=== PATIENT | female | born 1955 | race Caucasian/White ===

== ENCOUNTER 2018-06-13 20:25 | Emergency (ER) | payer OTHER ==
[2018-06-13 20:47] LABS: Absolute Monocytes 0.6 K/uL (0.1-1.3); Absolute Neutrophil 4.9 K/uL (1.8-8.0); Basophils % 1.3 % (0-1.3); Eosinophils % 7.4 % (0-4.4); Hematocrit 43.3 % (36.0-45.0); Lymphocytes % 24.3 % (15.3-44.8); MCV 94.8 fL (80-100); MPV 7.9 fL (7.6-11.3); Monocytes % 7.3 % (3.3-12.3); RBC Red Blood Cell Count 4.57 M/uL (3.86-4.86)
[2018-06-13 20:57] LABS: Potassium 4.2 mmol/L (3.5-5.1)
[2018-06-13 21:08] LABS: Protime INR 0.96
--- NOTE | 2018-06-13 21:15 | RAD REPORT ---
EXAM DESCRIPTION: CT - Ct Stroke Brain Wo Cont - 06/13/2018 8:45 pm CLINICAL HISTORY: Acute stroke symptoms CLINICAL HISTORY: None. TECHNIQUE: Axial 5 millimeter thick images of the head were obtained without IV contrast. All CT scans are performed using dose optimization technique as appropriate and may include automated exposure control or mA/KV adjustment according to patient size. FINDINGS: No intracranial hemorrhage, mass, or cerebral edema. No acute cortical based infarction. N o cortical edema or sulcal effacement. Mild atrophy and mild to moderate chronic ischemic changes are present. Ventricular size is in proportion to volume loss. No extra-axial fluid collections. Morgan m atter-white matter differentiation is preserved. No globe or orbital content abnormality. Visualized portions of the mastoid air cells, paranasal sinuses, and orbits are unremarkable. Technical difficulties precluded immediate written report. Findings telephoned to Dr. Kruse at 2044 h ours. IMPRESSION: No hemorrhage and no acute cortical based infarction. Atrophy and chronic ischemic changes are present. Chronic ischemic changes can mask nonhemorrhagic acute infarction. MR brain followup can be obtained if there is ongoing concern for acute ischemia.
[2018-06-13 21:23] LABS: Urine Blood NEGATIVE (NEG); Urine Glucose NEGATIVE (NEG); Urine Protein NEGATIVE (NEG); Urine Specific Gravity <1.005 (1.005-1.030); Urine pH 5.5 (5.0-7.0)
[2018-06-13 21:29] LABS: Urine Bacteria <20 /HPF (<20); Urine Culture Reflex Order REFLEXED; Urine RBC <5 /HPF (NONE SEEN); Urine Yeast MANY (NONE SEEN)
--- NOTE | 2018-06-13 23:41 | RAD REPORT ---
EXAM DESCRIPTION: RAD - Chest Single View - 06/13/2018 9:40 pm CLINICAL HISTORY: Stroke protocol chest film COMPARISON: September 2017 TECHNIQUE: AP portable chest image was obtained 2128 hours . FINDINGS: Lungs are clear. Heart and vasculature are normal. No measurable pleural effusion and no p neumothorax. No acute bone finding. Left shoulder prosthesis in place, new from the prior study. Trac hea is midline. No acute aortic findings suspected. IMPRESSION: No acute cardiopulmonary process. No suspicious change from comparison.
--- NOTE | 2018-06-14 00:36 | EDPHYS ---
Physician Documentation [facility] Name: Patria Mendoza Age: 63 yrs Sex: Female : 1955 Arrival Date: 06/13/2018 Time: 20:27 Bed 4 Private MD: Ulisses Rodriguez V ED Physician Haider Kruse HPI: 06/13 20:25 This 63 yrs old Female presents to ER via Unassigned with complaints of gs numbness. 06/14 00:27 The patient's problem is reported as paresthesias, in left upper extremity, in left gs side of face, weakness, in the left upper extremity. Onset: The symptoms/episode began/occurred yesterday, at 19:50. 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 Context: occurred at home, occurred while the patient was eating. The symptoms are alleviated by nothing. The symptoms are aggravated by nothing. Associated signs and symptoms: Pertinent negatives: chest pain, combativeness, confusion. Severity of symptoms: At their worst the symptoms were severe in the emergency department the symptoms have resolved and did so just prior to arrival. The patient has not experienced similar symptoms in the past. Historical: - Allergies: 06/13 20:47 Codeine; bb 20:47 Iodinated Contrast Media - IV Dye; bb 20:47 Morphine (Upset stomach); bb 20:47 Ultram; bb - Home Meds: 06/14 00:22 Zantac Oral [Active]; losartan Oral [Active]; Cymbalta Oral [Active]; Bystolic Oral ak1 [Active]; - PMHx: 06/13 20:47 Hypertension; bb - PSHx: 06/14 00:22 Cholecystectomy; tumors removed from BLE; right knee; ak1 - Immunization history:: Adult Immunizations unknown. - Ebola Screening: : No symptoms or risks identified at this time. - Social history:: Smoking status: unknown. ROS: 00:27 All other systems are negative. gs Exam: 00:27 Radiologist reports: NO BLEED gs 00:27 Constitutional: This is a well developed, well nourished patient who is awake, alert, and in no acute distress. Head/Face: Normocephalic, atraumatic. Eyes: Pupils equal round and reactive to light, extra-ocular motions intact. Lids and lashes normal. Conjunctiva and sclera are non-icteric and not injected. Cornea within normal limits. Periorbital areas with no swelling, redness, or edema. ENT: Nares patent. No nasal discharge, no septal abnormalities noted. Tympanic membranes are normal and external auditory canals are clear. Oropharynx with no redness, swelling, or masses, exudates, or evidence of obstruction, uvula midline. Mucous membranes moist. Neck: Trachea midline, no thyromegaly or masses palpated, and no cervical lymphadenopathy. Supple, full range of motion without nuchal rigidity, or vertebral point tenderness. No Meningismus. Chest/axilla: Normal chest wall appearance and motion. Nontender with no deformity. No lesions are appreciated. Cardiovascular: Regular rate and rhythm with a normal S1 and S2. No gallops, murmurs, or rubs. Normal PMI, no JVD. No pulse deficits. Respiratory: Lungs have equal breath sounds bilaterally, clear to auscultation and percussion. No rales, rhonchi or wheezes noted. No increased work of breathing, no retractions or nasal flaring. Abdomen/GI: Soft, non-tender, with normal bowel sounds. No distension or tympany. No guarding or rebound. No evidence of tenderness throughout. Back: No spinal tenderness. No costovertebral tenderness. Full range of motion. Skin: Warm, dry with normal turgor. Normal color with no rashes, no lesions, and no evidence of cellulitis. MS/ Extremity: Pulses equal, no cyanosis. Neurovascular intact. Full, normal range of motion. 00:27 Neuro: Orientation: is normal, Mentation: is normal, Memory: is normal, Cranial nerves: CN II- XII are normal as tested, Cerebellar function: normal finger to nose testing, Motor: moves all fours, strength is normal, Sensation: is normal, Abnormal movements: there are no abnormal movements. 00:32 ECG was reviewed by the Attending Physician. Vital Signs: 06/13 20:25 BP 150 / 72; Pulse 68; Resp 16 S; Temp 99(O); Pulse Ox 97% on R/A; Weight 108.86 kg bb (R); Height 5 ft. 3 in. (160.02 cm) (R); 21:00 BP 128 / 70; Pulse 67; Resp 13; Pulse Ox 97% ; bp 21:30 BP 122 / 70; Pulse 66; Resp 12; Pulse Ox 98% ; bp 22:00 BP 129 / 57; Pulse 65; Resp 14; Pulse Ox 98% ; bp 22:53 BP 143 / 63; Pulse 65; Resp 14; Pulse Ox 97% ; bp 23:00 BP 111 / 66; Pulse 59; Resp 13; Pulse Ox 100% ; bp 06/14 00:04 BP 133 / 60; Pulse 59; Resp 14; Pulse Ox 100% on R/A; ak1 02:00 BP 144 / 60; Pulse 62; Resp 14; Pulse Ox 98% ; bp 06/13 20:25 Body Mass Index 42.51 (108.86 kg, 160.02 cm) bb NIH Stroke Scale Scores: 06/13 20:30 NIHSS Score: 0 bb 23:00 NIHSS Score: 0 bp 06/14 00:27 NIHSS Score: 0 gs MDM: 06/13 20:25 Patient medically screened. 06/14 00:32 Differential diagnosis: CVA, TIA, paralysis, metabolic disorder. Data reviewed: vital gs signs, nurses notes. Response to treatment: the patient's symptoms have resolved after treatment. 06/13 20:28 Order name: Basic Metabolic Panel; Complete Time: 22:43 06/13 20:28 Order name: CBC with Diff; Complete Time: 22:43 06/13 20:28 Order name: Protime (+inr); Complete Time: 22:43 06/13 20:28 Order name: Urine Microscopic Only; Complete Time: 22:43 06/13 21:20 Order name: Urine Dipstick--Ancillary (enter results); Complete Time: 22:43 2 06/13 21:30 Order name: Urine Culture EDMS 06/13 20:28 Order name: CT Stroke Brain w/o Contrast; Complete Time: 22:43 06/13 20:28 Order name: Stroke CXR 1 View; Complete Time: 00:00 06/13 20:28 Order name: EKG; Complete Time: 20:29 06/13 20:28 Order name: Accucheck; Complete Time: 20:52 06/13 20:28 Order name: Cardiac monitoring; Complete Time: 20:52 06/13 20:28 Order name: EKG - Nurse/Tech; Complete Time: 21:40 06/13 20:28 Order name: IV Saline Lock; Complete Time: 20:52 06/13 20:28 Order name: Labs collected and sent; Complete Time: 20:52 06/13 20:28 Order name: NPO; Complete Time: 20:52 06/13 20:28 Order name: O2 Per Protocol; Complete Time: 20:52 06/13 20:28 Order name: O2 Sat Monitoring; Complete Time: 20:52 06/13 20:28 Order name: Stroke Swallow Screen; Complete Time: 20:52 06/13 20:28 Order name: Urine Dipstick-Ancillary (obtain specimen); Complete Time: 21:20 EC:32 Rate is 66 beats/min. Rhythm is regular. GA interval is normal. QRS interval is normal. gs T waves are Normal. No ST changes noted. Clinical impression: NSR w/ Non-specific ST/T Changes. Interpreted by me. Administered Medications: 00:54 Drug: Aspirin Chewable Tablet 324 mg Route: PO; ak1 00:54 Follow up: Response: No adverse reaction ak1 Point of Care Testing: Blood Glucose: 06/13 20:34 Blood Glucose: 97 mg/dL; bb Ranges: Critical Glucose Levels:Adult <50 mg/dl or >400 mg/dl <40 mg/dl or >180 mg/dl Disposition: 06/14/18 00:34 Transfer ordered to [facility]. Diagnosis is Transient cerebral ischemic attacks and related syndromes. - Reason for transfer: Higher level of care. - Accepting physician is [facility]. - Condition is Stable. - Problem is new. - Symptoms are resolved. NIH Stroke Scale - NIH Stroke Score Date: 06/13/2018 Time: 20:30 Total Score = 0 1a. Level of Consciousness (LOC) - 0(Alert) 1b. Level of Consciousness (LOC) (Year \T\ Age) - 0(Both) 1c. LOC Commands (Open \T\ Closes Eyes/Sandwich Board Carrier) - 0(Both) 2. Best Gaze (Lateral Gaze Paresis) - 0(Normal) 3. Visual Field Loss - 0(No visual loss) 4. Facial Palsy - 0(Normal) 5a. Left Arm: Motor (10-second hold) - 0(No drift) 5b. Right Arm: Motor (10-second hold) - 0(No drift) 6a. Left Leg: Motor (5-second hold - always test supine) - 0(No drift) 6b. Right Leg: Motor (5-second hold - always test supine) - 0(No drift) 7. Limb Ataxia (finger/nose \T\ heel/augustine - test with eyes open) - 0(Absent) 8. Sensory Loss (pinprick arms/legs/face) - 0(Normal) 9. Best Language: Aphasia (description/naming/reading) - 0(No aphasia) 10. Dysarthria (speech clarity - read or repeat words) - 0(Normal) 11. Extinction and Inattention (visual/tactile/auditory/spatial/personal) - 0(No abnormality) Initials: bb NIH Stroke Scale - NIH Stroke Score Date: 06/13/2018 Time: 23:00 Total Score = 0 1a. Level of Consciousness (LOC) - 0(Alert) 1b. Level of Consciousness (LOC) (Year \T\ Age) - 0(Both) 1c. LOC Commands (Open \T\ Closes Eyes/Sandwich Board Carrier) - 0(Both) 2. Best Gaze (Lateral Gaze Paresis) - 0(Normal) 3. Visual Field Loss - 0(No visual loss) 4. Facial Palsy - 0(Normal) 5a. Left Arm: Motor (10-second hold) - 0(No drift) 5b. Right Arm: Motor (10-second hold) - 0(No drift) 6a. Left Leg: Motor (5-second hold - always test supine) - 0(No drift) 6b. Right Leg: Motor (5-second hold - always test supine) - 0(No drift) 7. Limb Ataxia (finger/nose \T\ heel/augustine - test with eyes open) - 0(Absent) 8. Sensory Loss (pinprick arms/legs/face) - 0(Normal) 9. Best Language: Aphasia (description/naming/reading) - 0(No aphasia) 10. Dysarthria (speech clarity - read or repeat words) - 0(Normal) 11. Extinction and Inattention (visual/tactile/auditory/spatial/personal) - 0(No abnormality) Initials: bp NIH Stroke Scale - NIH Stroke Score Date: 06/14/2018 Time: 00:27 Total Score = 0 1a. Level of Consciousness (LOC) - 0(Alert) 1b. Level of Consciousness (LOC) (Year \T\ Age) - 0(Both) 1c. LOC Commands (Open \T\ Closes Eyes/Sandwich Board Carrier) - 0(Both) 2. Best Gaze (Lateral Gaze Paresis) - 0(Normal) 3. Visual Field Loss - 0(No visual loss) 4. Facial Palsy - 0(Normal) 5a. Left Arm: Motor (10-second hold) - 0(No drift) 5b. Right Arm: Motor (10-second hold) - 0(No drift) 6a. Left Leg: Motor (5-second hold - always test supine) - 0(No drift) 6b. Right Leg: Motor (5-second hold - always test supine) - 0(No drift) 7. Limb Ataxia (finger/nose \T\ heel/augustine - test with eyes open) - 0(Absent) 8. Sensory Loss (pinprick arms/legs/face) - 0(Normal) 9. Best Language: Aphasia (description/naming/reading) - 0(No aphasia) 10. Dysarthria (speech clarity - read or repeat words) - 0(Normal) 11. Extinction and Inattention (visual/tactile/auditory/spatial/personal) - 0(No abnormality) Initials: Signatures: Dispatcher [employer] [facility] Marychuy Fernando RN RN bb Mary [place] RN RN ak1 Haider Kruse MD MD gs Peltier, Brian RN RN bp Corrections: (The following items were deleted from the chart) 20:41 20:41 Patient medically screened. [facility] 22:25 22:23 BiPap ([employer] Only)+JUVENAL.OCTAVIO ordered. [facility] 06/14 02:01 00:34 06/14/2018 00:34 Transfer ordered to [facility]. bp Diagnosis is Transient cerebral ischemic attacks and related syndromes. Reason for transfer: Higher level of care. Accepting physician is [facility]. Condition is Stable. Problem is new. Symptoms are resolved.
--- NOTE | 2018-06-14 00:36 | ER ---
Nurse's Notes [facility] Name: Patria Mendoza Age: 63 yrs Sex: Female : 1955 Arrival Date: 06/13/2018 Time: 20:27 Bed 4 Private MD: Ulisses Rodriguez V Diagnosis: Transient cerebral ischemic attacks and related syndromes Presentation: 06/13 20:20 Presenting complaint: EMS states: they were toned out for report of pt having left bb sided facial numbness and numbness to left hand. Transition of care: patient was not received from another setting of care. Onset of symptoms was June 13, 2018 at 19:50. Risk Assessment: Do you want to hurt yourself or someone else? Patient reports no desire to harm self or others. Initial Sepsis Screen: Does the patient meet any 2 criteria? No. Patient's initial sepsis screen is negative. Does the patient have a suspected source of infection? No. Patient's initial sepsis screen is negative. Care prior to arrival: None. 20:20 Method Of Arrival: EMS: [facility] bb 20:20 Acuity: KADY 2 bb 20:[address] scan via stretcher accompanied by Minor Tyler RN. bb 20:[address] results which are negative for hemorrhage. bb Triage Assessment: 20:27 General: Appears in no apparent distress. comfortable, obese, Behavior is cooperative, bp appropriate for age, anxious. 20:27 Pain: Denies pain. EENT: No deficits noted. Neuro: Level of Consciousness is awake, bp alert, obeys commands, Oriented to person, place, time, situation, Appropriate for age Messaging Architect are equal bilaterally Moves all extremities. Full function. Cardiovascular: No deficits noted. Rhythm is sinus rhythm. Respiratory: Airway is patent Respiratory effort is even, unlabored, Respiratory pattern is regular, symmetrical. GI: No signs and/or symptoms were reported involving the gastrointestinal system. : No signs and/or symptoms were reported regarding the genitourinary system. Derm: No deficits noted. Musculoskeletal: Circulation, motion, and sensation intact. Range of motion: limited in left shoulder 2/2 surgery. Historical: - Allergies: 20:47 Codeine; bb 20:47 Iodinated Contrast Media - IV Dye; bb 20:47 Morphine (Upset stomach); bb 20:47 Ultram; bb - Home Meds: 06/14 00:22 Zantac Oral [Active]; losartan Oral [Active]; Cymbalta Oral [Active]; Bystolic Oral ak1 [Active]; - PMHx: 06/13 20:47 Hypertension; bb - PSHx: 06/14 00:22 Cholecystectomy; tumors removed from BLE; right knee; ak1 - Immunization history:: Adult Immunizations unknown. - Ebola Screening: : No symptoms or risks identified at this time. - Social history:: Smoking status: unknown. Screenin/22 20:27 The patient has not been NPO before screening. The patient is alert, able to follow bb commands. The patient does not exhibit slurred or garbled speech The patient is not exhibiting difficulty speaking. The patient does not exhibit difficulty understanding words. The patient is able to swallow own secretions with no drooling or need for suction. Patient tolerated one teaspoon of water. No drooling, immediate coughing, gurgling, or clearing of the throat was noted. The patient tolerated 90mL of water. No drooling, immediate coughing, gurgling, or clearing of the throat was noted. The patient passed the bedside swallow screening. Oral medications may be given as ordered. Contact Physician for further diet orders. 20:57 Abuse screen: Denies threats or abuse. Denies injuries from another. Nutritional bp screening: No deficits noted. Tuberculosis screening: No symptoms or risk factors identified. Fall Risk No fall in past 12 months (0 pts). No secondary diagnosis (0 pts). IV access (20 points). Ambulatory Aid- Crutches/Cane/Walker (15 pts). Gait- Normal/Bed Rest/Wheelchair (0 pts) Mental Status- Oriented to own ability (0 pts). Total Peters Fall Scale indicates Low Risk Score (25-44 pts). Fall prevention measures have been instituted. Side Rails Up X 2 Placed close to Nursing Station Frequent Obs/Assesments occuring As available Patient and Family Educated on Fall Prevention Program and strategies. Assessment: 20:27 General: Appears in no apparent distress. comfortable, obese, Behavior is cooperative, bp appropriate for age, anxious. Pain: Denies pain. Neuro: Level of Consciousness is awake, alert, obeys commands, Oriented to person, place, time, situation, Appropriate for age Messaging Architect are equal bilaterally Moves all extremities. Full function Gait is unsteady, USES CANE AT BASELINE. Speech is normal, Facial symmetry appears normal, Pupils are PERRLA, Intact Reports numbness MOMENTARY TO LEFT FACE AND LEFT HAND. Cardiovascular: Rhythm is sinus rhythm. Respiratory: Airway is patent Respiratory effort is even, unlabored, Respiratory pattern is regular, symmetrical. GI: No signs and/or symptoms were reported involving the gastrointestinal system. : No signs and/or symptoms were reported regarding the genitourinary system. EENT: No deficits noted. Derm: No deficits noted. Musculoskeletal: Circulation, motion, and sensation intact. Range of motion: limited in left shoulder 2/2 POST-SURGICAL IMMOBILITY. 20:30 Reassessment: MD AT B/ FOR INITIAL EVAL. bp 20:35 Reassessment: PT TO CT WITH RN. bp 20:50 Reassessment: PT RETURNED TO ROOM. bp 21:30 Reassessment: PT REMAINS NEURO INTACT, LAB RESULTS PENDING. bp 22:00 Reassessment: PT VS STABLE, SR ON MONITOR. NO NEURO DEFICITS NOTED AT THIS TIME. bp 23:00 Reassessment: NIHSS REMAINS 0. VS STABLE ON MONITOR, AWAITING DISPO. bp 06/14 00:04 Reassessment: Patient appears in no apparent distress at this time. No changes from ak1 previously documented assessment. Patient states symptoms have improved. 01:59 Reassessment: [facility] AT / FOR TRANSPORT. PT REMAINS NIHSS 0, NEURO INTACT. bp Vital Signs: 06/13 20:25 BP 150 / 72; Pulse 68; Resp 16 S; Temp 99(O); Pulse Ox 97% on R/A; Weight 108.86 kg bb (R); Height 5 ft. 3 in. (160.02 cm) (R); 21:00 BP 128 / 70; Pulse 67; Resp 13; Pulse Ox 97% ; bp 21:30 BP 122 / 70; Pulse 66; Resp 12; Pulse Ox 98% ; bp 22:00 BP 129 / 57; Pulse 65; Resp 14; Pulse Ox 98% ; bp 22:53 BP 143 / 63; Pulse 65; Resp 14; Pulse Ox 97% ; bp 23:00 BP 111 / 66; Pulse 59; Resp 13; Pulse Ox 100% ; bp 06/14 00:04 BP 133 / 60; Pulse 59; Resp 14; Pulse Ox 100% on R/A; ak1 02:00 BP 144 / 60; Pulse 62; Resp 14; Pulse Ox 98% ; bp 06/13 20:25 Body Mass Index 42.51 (108.86 kg, 160.02 cm) bb NIH Stroke Scale Scores: 06/13 20:30 NIHSS Score: 0 bb 23:00 NIHSS Score: 0 bp 06/14 00:27 NIHSS Score: 0 ED Course: 06/13 20:20 Arm band placed on Patient placed in an exam room, on a stretcher, on youth nutritional monitor, bb on pulse oximetry. 20:27 Patient arrived in ED. ds1 20:27 Haider Kruse MD is Attending Physician. gs 20:27 Ulisses Rodriguez MD is Private Physician. ds1 20:29 Inserted saline lock: 20 gauge in right antecubital area, using aseptic technique. bb ,using aseptic technique. by Minor Tyler RN Blood collected. 20:45 CT Stroke Brain w/o Contrast In Process Unspecified. EDMS 20:47 Triage completed. bb 20:50 Minor Nam, JESSICA is Primary Nurse. bp 21:10 Patient has correct armband on for positive identification. Bed in low position. Call ak1 light in reach. Side rails up X2. youth nutritional monitor on. Pulse ox on. NIBP on. Door closed. Warm blanket given. Pillow given. Assisted to bedside commode. 21:40 Stroke CXR 1 View In Process Unspecified. EDMS 06/14 00:05 No provider procedures requiring assistance completed. ak1 01:57 Patient transferred, IV remains in place. ak1 01:59 Urine Culture Sent. bp Administered Medications: 00:54 Drug: Aspirin Chewable Tablet 324 mg Route: PO; ak1 00:54 Follow up: Response: No adverse reaction ak1 Point of Care Testing: Blood Glucose: 06/13 20:34 Blood Glucose: 97 mg/dL; bb Ranges: Outcome: 06/14 00:34 ER care complete, transfer ordered by . 01:56 Transferred by ground EMS to [facility], Transfer form completed. ak1 X-rays sent w/ patient. Note: report given to Huber LOPEZ for 918. report given to [facility]. 01:56 Condition: stable 02:01 Patient left the ED. bp NIH Stroke Scale - NIH Stroke Score Date: 06/13/2018 Time: 20:30 Total Score = 0 1a. Level of Consciousness (LOC) - 0(Alert) 1b. Level of Consciousness (LOC) (Year \T\ Age) - 0(Both) 1c. LOC Commands (Open \T\ Closes Eyes/University Lecturer) - 0(Both) 2. Best Gaze (Lateral Gaze Paresis) - 0(Normal) 3. Visual Field Loss - 0(No visual loss) 4. Facial Palsy - 0(Normal) 5a. Left Arm: Motor (10-second hold) - 0(No drift) 5b. Right Arm: Motor (10-second hold) - 0(No drift) 6a. Left Leg: Motor (5-second hold - always test supine) - 0(No drift) 6b. Right Leg: Motor (5-second hold - always test supine) - 0(No drift) 7. Limb Ataxia (finger/nose \T\ heel/augustine - test with eyes open) - 0(Absent) 8. Sensory Loss (pinprick arms/legs/face) - 0(Normal) 9. Best Language: Aphasia (description/naming/reading) - 0(No aphasia) 10. Dysarthria (speech clarity - read or repeat words) - 0(Normal) 11. Extinction and Inattention (visual/tactile/auditory/spatial/personal) - 0(No abnormality) Initials: NIH Stroke Scale - NIH Stroke Score Date: 06/13/2018 Time: 23:00 Total Score = 0 1a. Level of Consciousness (LOC) - 0(Alert) 1b. Level of Consciousness (LOC) (Year \T\ Age) - 0(Both) 1c. LOC Commands (Open \T\ Closes Eyes/University Lecturer) - 0(Both) 2. Best Gaze (Lateral Gaze Paresis) - 0(Normal) 3. Visual Field Loss - 0(No visual loss) 4. Facial Palsy - 0(Normal) 5a. Left Arm: Motor (10-second hold) - 0(No drift) 5b. Right Arm: Motor (10-second hold) - 0(No drift) 6a. Left Leg: Motor (5-second hold - always test supine) - 0(No drift) 6b. Right Leg: Motor (5-second hold - always test supine) - 0(No drift) 7. Limb Ataxia (finger/nose \T\ heel/augustine - test with eyes open) - 0(Absent) 8. Sensory Loss (pinprick arms/legs/face) - 0(Normal) 9. Best Language: Aphasia (description/naming/reading) - 0(No aphasia) 10. Dysarthria (speech clarity - read or repeat words) - 0(Normal) 11. Extinction and Inattention (visual/tactile/auditory/spatial/personal) - 0(No abnormality) Initials: bp NIH Stroke Scale - NIH Stroke Score Date: 06/14/2018 Time: 00:27 Total Score = 0 1a. Level of Consciousness (LOC) - 0(Alert) 1b. Level of Consciousness (LOC) (Year \T\ Age) - 0(Both) 1c. LOC Commands (Open \T\ Closes Eyes/University Lecturer) - 0(Both) 2. Best Gaze (Lateral Gaze Paresis) - 0(Normal) 3. Visual Field Loss - 0(No visual loss) 4. Facial Palsy - 0(Normal) 5a. Left Arm: Motor (10-second hold) - 0(No drift) 5b. Right Arm: Motor (10-second hold) - 0(No drift) 6a. Left Leg: Motor (5-second hold - always test supine) - 0(No drift) 6b. Right Leg: Motor (5-second hold - always test supine) - 0(No drift) 7. Limb Ataxia (finger/nose \T\ heel/augustine - test with eyes open) - 0(Absent) 8. Sensory Loss (pinprick arms/legs/face) - 0(Normal) 9. Best Language: Aphasia (description/naming/reading) - 0(No aphasia) 10. Dysarthria (speech clarity - read or repeat words) - 0(Normal) 11. Extinction and Inattention (visual/tactile/auditory/spatial/personal) - 0(No abnormality) Initials: Signatures: Dispatcher [employer] [facility] Dilma Espino ds1 Marychuy Fernando RN RN bb Mary Hill RN RN ak1 Haider Kruse MD MD gs Peltier, Brian, RN RN bp Corrections: (The following items were deleted from the chart) 06/13 21:00 20:20 General: Appears in no apparent distress. comfortable, obese, Behavior is bp cooperative, appropriate for age, anxious, bp 21:00 20:20 Pain: Denies pain. bp bp 21:00 20:20 Neuro: Level of Consciousness is awake, alert, obeys commands, Oriented bp to person, place, time, situation, Appropriate for age Messaging Architect are equal bilaterally Moves all extremities. Full function Gait is unsteady, USES CANE AT BASELINE. Speech is normal, Facial symmetry appears normal, Pupils are PERRLA, Intact Reports numbness MOMENTARY TO LEFT FACE AND LEFT HAND bp 21:00 20:20 Cardiovascular: Rhythm is sinus rhythm bp bp 21:00 20:20 Respiratory: Airway is patent Respiratory effort is even, unlabored, bp Respiratory pattern is regular, symmetrical, bp 21:00 20:20 GI: No signs and/or symptoms were reported involving the gastrointestinal bp system. bp 21:00 20:20 : No signs and/or symptoms were reported regarding the genitourinary bp system. bp 21:00 20:20 EENT: No deficits noted. bp bp 21:00 20:20 Derm: No deficits noted. bp bp 21:00 20:20 Musculoskeletal: Circulation, motion, and sensation intact. Range of bp motion: limited in left shoulder 2/2 POST-SURGICAL IMMOBILITY bp 21:00 20:25 Reassessment: AT B/S FOR INITIAL EVAL bp bp 21:08 20:51 General: Appears bp bp 22:24 22:21 Reassessment: bp bp
[2018-06-14] MEDS ORDERED: ASPIRIN 81 MG CHEWABLE TABLET ONE (00:49)
--- NOTE | 2018-06-14 07:39 | EKG ---
Test Date: 2018-06-13 Test Time: 21:33:34 [employer]: MARIO ALBERTO MEASUREMENT RESULTS: Intervals: Rate: 66 MS: 192 QRSD: 82 QT: 396 QTc: 415 [place]: P: 42 MS: 192 QRS: -8 T: 47 INTERPRETIVE STATEMENTS: Normal sinus rhythm Minimal voltage criteria for LVH, may be normal variant Borderline ECG Compared to ECG 11/25/2017 08:24:18 Left ventricular hypertrophy now present First degree AV block no longer present Myocardial infarct finding no longer present Electronically Signed On 06-14-18 07:38:43 CDT by Asif March
== END 2018-06-14 02:01 | disposition short-term general hospital (02) ==
LOC: ER 20:25
DX: G45.8 Other transient cerebral ischemic attacks and related syndromes (principal); I10 Essential (primary) hypertension; Z88.6 Allergy status to analgesic agent; Z91.041 Radiographic dye allergy status
CPT/HCPCS: 36415; 70450; 71045; 80048; 81003; 81015; 82962; 85025; 85610; 87086; 87088; 93005; 99285

== ENCOUNTER 2025-02-07 17:45 | Emergency (ER) | payer OTHER ==
[2025-02-07] MEDS ORDERED: ONDANSETRON 4 MG (ODT) TAB ONE (19:02)
[2025-02-07] MEDS ORDERED: KETOROLAC 30 MG/ML INJ ONE (19:02)
[2025-02-07] MEDS ORDERED: HYDROCODONE/APAP 5/325 MG TAB ONE ×2 (19:02→20:42)
--- NOTE | 2025-02-07 19:35 | RAD REPORT ---
EXAMINATION: CT ABDOMEN AND PELVIS WITHOUT CONTRAST CLINICAL INDICATION: low back pain, hip pain- right TECHNIQUE: CT abdomen and pelvis was performed, without IV contrast, as per department protocol. Axia l, sagittal and coronal reconstructions were obtained. One or more of the following dose reduction techniques were used: Automated exposure control, adjustment of the mA and kV according to the patien t size, and iterative reconstruction. Unless otherwise specified, incidental findings do not require dedicated imaging follow-up. COMPARISON: No prior exam. FINDINGS: The lack of intravenous contrast limits the sensitivity of this exam for evaluation of solid visceral organs, vascular structures, and retroperitoneum. LOWER CHEST: The visualized lung bases are clear. LIVER:Slightly nodular contour and atrophy left lobe of the liver. No liver mass or biliary dilatatio n. Cholecystectomy clips. SPLEEN: Normal size. No focal lesion. PANCREAS: No mass, ductal dilation, or evin-pancreatic fluid. ADRENALS: Normal; no mass. KIDNEYS AND URETERS: Normal size and contour. No hydronephrosis. URINARY BLADDER: Normal contour. GASTROINTESTINAL TRACT: No evidence of bowel obstruction, significant free fluid, free air or abscess . There is moderate diverticulosis coli of the sigmoid colon without diverticulitis. APPENDIX: Appendix not visualized, but no inflammatory changes in region of appendix. LYMPH NODES: No lymphadenopathy. MUSCULOSKELETAL: Moderate lumbar spondylosis. ADDITIONAL FINDINGS: None. IMPRESSION: No acute abnormalities in the abdomen or pelvis, with evaluation limited by lack of IV contrast. Moderate diverticulosis and wall thickening of the sigmoid colon. Follow up screening colonoscopy is suggested if not recently performed.
--- NOTE | 2025-02-07 19:55 | RAD REPORT ---
EXAMINATION: XR RIGHT KNEE CLINICAL INDICATION: Female, 69 years old. PAIN TECHNIQUE: Multiple views of the right knee were obtained. COMPARISON: No prior exam. FINDINGS: Prominent osteopenia. Moderate to severe medial compartment space osteoarthritis with bone- on-bone. No acute fracture or dislocation visualized. No significant joint fluid. Given the high degree of osteopenia, if pain persists, MRI would be indicated for follow-up.
--- NOTE | 2025-02-07 20:29 | ER ---
Nurse's Notes [facility] Name: Patria Mendoza Age: 69 yrs Sex: Female : 1955 Arrival Date: 02/07/2025 Time: 17:45 Bed 9 Private MD: Diagnosis: Sciatica, right side;Osteoarthritis of knee, unspecified Presentation: 02/07 18:28 Chief complaint: Patient states: a couple days ago my right sciatic nerve was hurting iw me, now my right hip hurts around to my belly and down to my right knee. Coronavirus screen: At this time, the client does not indicate any symptoms associated with coronavirus-19. Ebola Screen: No symptoms or risks identified at this time. Initial Sepsis Screen: Does the patient meet any 2 criteria? No. Patient's initial sepsis screen is negative. Does the patient have a suspected source of infection? No. Patient's initial sepsis screen is negative. Risk Assessment: Do you want to hurt yourself or someone else? Patient reports no desire to harm self or others. Onset of symptoms was February 05, 2025. 18:28 Method Of Arrival: Wheelchair iw 18:28 Acuity: KADY 3 iw Historical: - Allergies: 18:30 Codeine; iw 18:30 Iodinated Contrast Media - IV Dye; iw 18:30 Morphine (Upset stomach); iw 18:30 Sulfa (Sulfonamide Antibiotics); iw 18:30 Ultram; iw - Home Meds: 18:30 famotidine 40 mg oral tablet 2 times per day [Active]; tizanidine 4 mg oral capsule 3 iw times per day [Active]; nebivolol 2.5 mg oral tablet 2 tabs daily [Active]; ezetimibe 10 mg oral tablet daily [Active]; duloxetine 30 mg oral capsule,delayed release (e.c.) daily [Active]; Fiasp FlexTouch U-100 Insulin 100 unit/mL (3 mL) subcutaneous Insulin Pen 7 units before meals [Active]; - PMHx: 18:30 Hypertension; Asthma; Anxiety; Hypothyroidism; Irregular heart rate; Diabetes mellitus; iw - PSHx: 18:30 Cholecystectomy; Ankle; Shoulder; hip; iw - Immunization history:: Adult Immunizations not up to date. - Infectious Disease History:: Denies. - Social history:: Smoking status: Patient denies any tobacco usage or history of. Screenin:09 [facility] ED Fall Risk Assessment (Adult) History of falling in the last 3 months, jb4 including since admission No falls in past 3 months (0 pts) Confusion or Disorientation No (0 pts) Intoxicated or Sedated No (0 pts) Impaired Gait No (0 pts) Mobility Assist Device Used No (0 pt) Altered Elimination No (0 pt) Score/Fall Risk Level 0 - 2 = Low Risk Oriented to surroundings, Maintained a safe environment. Abuse screen: Denies threats or abuse. Nutritional screening: No deficits noted. Tuberculosis screening: No symptoms or risk factors identified. Assessment: 18:45 General: Appears in no apparent distress. comfortable, Behavior is calm, cooperative, jb4 appropriate for age. Pain: Complains of pain in right leg Pain does not radiate. Pain currently is 10 out of 10 on a pain scale. Neuro: Level of Consciousness is awake, alert, obeys commands, Oriented to person, place, time, situation. Cardiovascular: Patient's skin is warm and dry. Respiratory: Airway is patent Respiratory effort is even, unlabored, Respiratory pattern is regular, symmetrical. GI: No signs and/or symptoms were reported involving the gastrointestinal system. Derm: Skin is intact, Skin is pink, warm \T\ dry. Musculoskeletal: Circulation, motion, and sensation intact. Range of motion: intact in all extremities, Reports pain in right hip and right leg. 20:00 Reassessment: Patient appears in no apparent distress at this time. Patient and/or jb4 family updated on plan of care and expected duration. Pain level reassessed. Patient is alert, oriented x 3, equal unlabored respirations, skin warm/dry/pink. 20:50 Reassessment: Patient appears in no apparent distress at this time. Patient and/or jb4 family updated on plan of care and expected duration. Pain level reassessed. Patient is alert, oriented x 3, equal unlabored respirations, skin warm/dry/pink. Vital Signs: 18:28 BP 91 / 50; Pulse 59; Resp 16; Temp 98.4; Pulse Ox 98% on R/A; Weight 95.25 kg; Height iw 5 ft. 3 in. ; Pain 10/10; 20:00 BP 132 / 64; Pulse 52; Resp 16; Pulse Ox 98% on R/A; jb4 18:28 Body Mass Index 37.20 (95.25 kg, 160.02 cm) iw 18:28 Pain Scale: Adult iw ED Course: 17:49 Patient arrived in ED. al6 18:30 Triage completed. iw 18:33 Arm band placed on. iw 18:41 Carito Arias PA-C is PHCP. sb4 18:41 Sekou Welch MD is Attending Physician. sb4 19:25 CT Stone Protocol In Process Unspecified. EDMS 19:51 Knee Right 3 View XRAY In Process Unspecified. EDMS 20:09 Patient has correct armband on for positive identification. Bed in low position. Call jb4 light in reach. Side rails up X 1. Provided Education on: plan of care. 20:09 No provider procedures requiring assistance completed. jb4 20:09 Patient did not have IV access during this emergency room visit. jb4 Administered Medications: 19:09 Drug: HYDROcodone-acetaminophen PO 5 mg-325 mg 1 tabs PO once Route: PO; jb4 20:34 Follow up: Response: No adverse reaction jb4 19:09 Drug: Ondansetron Oral Disintegrating Tablet Oral Disintegrating Tablet 4 mg PO once jb4 Route: PO; 20:34 Follow up: Response: No adverse reaction jb4 19:10 Drug: Ketorolac IM 30 mg IM once Route: IM; Site: right deltoid; jb4 20:34 Follow up: Response: No adverse reaction; Marked relief of symptoms jb4 20:55 Drug: Dexamethasone IM 10 mg IM once Route: IM; Site: right deltoid; jb4 20:56 Follow up: Response: Medication administered at discharge. jb4 20:55 Drug: HYDROcodone-acetaminophen PO 5 mg-325 mg 1 tabs PO once Route: PO; jb4 20:55 Follow up: Response: Medication administered at discharge. jb4 20:55 Drug: Lidoderm Topical Patch 5 % (700 mg/patch) 1 patches Topical once; leave on for 12 jb4 hours; cover most painful area; may cut into smaller pieces Route: Topical; Site: affected area; 20:56 Follow up: Response: Medication administered at discharge. jb4 Medication: 20:50 VIS not applicable for this client. jb4 Outcome: 20:28 Discharge ordered by . sb4 20:55 Discharged to home ambulatory, jb4 20:55 Condition: stable 20:55 Discharge instructions given to patient, Instructed on discharge instructions, follow up and referral plans. no drinking with medication, no driving heavy equipment, medication usage, Demonstrated understanding of instructions, follow-up care, medications, Prescriptions given X 2, 20:56 Patient left the ED. jb4 Signatures: Dispatcher [employer] EDHumera Baez RN RN iw Bryson, James, RN RN jb4 Carito Arias PA-C PATisha Dickson
--- NOTE | 2025-02-07 20:29 | EDPHYS ---
Physician Documentation [facility] Name: Patria Mendoza Age: 69 yrs Sex: Female : 1955 Arrival Date: 02/07/2025 Time: 17:45 Bed 9 Private MD: ED Physician Sekou Welch HPI: 02/07 23:28 This 69 yrs old Female presents to ER via Wheelchair with complaints of back pain, hip sb4 pain. 23:28 Patient complains of right low back/hip pain that radiates down her leg with associated sb4 pain in her right knee. Reports history of sciatica in her left but not right leg. Denies any injury. States she has taken gabapentin and tizanidine without significant improvement in symptoms. No numbness or tingling. Historical: - Allergies: 18:30 Codeine; iw 18:30 Iodinated Contrast Media - IV Dye; iw 18:30 Morphine (Upset stomach); iw 18:30 Sulfa (Sulfonamide Antibiotics); iw 18:30 Ultram; iw - Home Meds: 18:30 famotidine 40 mg oral tablet 2 times per day [Active]; tizanidine 4 mg oral capsule 3 iw times per day [Active]; nebivolol 2.5 mg oral tablet 2 tabs daily [Active]; ezetimibe 10 mg oral tablet daily [Active]; duloxetine 30 mg oral capsule,delayed release (e.c.) daily [Active]; Fiasp FlexTouch U-100 Insulin 100 unit/mL (3 mL) subcutaneous Insulin Pen 7 units before meals [Active]; - PMHx: 18:30 Hypertension; Asthma; Anxiety; Hypothyroidism; Irregular heart rate; Diabetes mellitus; iw - PSHx: 18:30 Cholecystectomy; Ankle; Shoulder; hip; iw - Immunization history:: Adult Immunizations not up to date. - Infectious Disease History:: Denies. - Social history:: Smoking status: Patient denies any tobacco usage or history of. ROS: 23:28 Constitutional: Negative for fever, chills, and weight loss, sb4 23:28 MS/extremity: Positive for pain, of the pelvis and right hip and right leg, 23:28 All other systems are negative, Exam: 23:28 Constitutional: This is a well developed, well nourished patient who is awake, alert, sb4 and in no acute distress. Head/Face: Normocephalic, atraumatic. Eyes: Extra-ocular motions intact. Periorbital areas with no swelling, redness, or edema. ENT: Mucous membranes moist. Cardiovascular: Regular rate and rhythm with a normal S1 and S2. Respiratory: No increased work of breathing, no retractions or nasal flaring. Abdomen/GI: Soft, non-tender, no distension. Skin: Warm, dry with normal turgor. Normal color with no rashes, no lesions, and no evidence of cellulitis. Neuro: Awake and alert, GCS 15, oriented to person, place, time, and situation. Motor strength 5/5 in all extremities. Sensory grossly intact. Vital Signs: 18:28 BP 91 / 50; Pulse 59; Resp 16; Temp 98.4; Pulse Ox 98% on R/A; Weight 95.25 kg; Height iw 5 ft. 3 in. ; Pain 10/10; 20:00 BP 132 / 64; Pulse 52; Resp 16; Pulse Ox 98% on R/A; jb4 18:28 Body Mass Index 37.20 (95.25 kg, 160.02 cm) iw 18:28 Pain Scale: Adult iw MDM: 18:41 Medical Screening Exam initiated sb4 23:30 Data reviewed: vital signs, nurses notes, radiologic studies, and as a result, I will sb4 discharge patient. Care significantly affected by the following chronic conditions: Diabetes, Hypertension, Obesity. Counseling: I had a detailed discussion with the patient and/or guardian regarding the historical points, exam findings, and any diagnostic results supporting the discharge/admit diagnosis, lab results, radiology results, the need for outpatient follow up, for definitive care, to return to the emergency department if symptoms worsen or persist or if there are any questions or concerns that arise at home. 02/07 18:49 Order name: CT Stone Protocol; Complete Time: 19:41 sb4 02/07 18:49 Order name: Knee Right 3 View XRAY; Complete Time: 19:56 sb4 Administered Medications: 19:09 Drug: HYDROcodone-acetaminophen PO 5 mg-325 mg 1 tabs PO once Route: PO; jb4 20:34 Follow up: Response: No adverse reaction jb4 19:09 Drug: Ondansetron Oral Disintegrating Tablet Oral Disintegrating Tablet 4 mg PO once jb4 Route: PO; 20:34 Follow up: Response: No adverse reaction jb4 19:10 Drug: Ketorolac IM 30 mg IM once Route: IM; Site: right deltoid; jb4 20:34 Follow up: Response: No adverse reaction; Marked relief of symptoms jb4 20:55 Drug: Dexamethasone IM 10 mg IM once Route: IM; Site: right deltoid; jb4 20:56 Follow up: Response: Medication administered at discharge. jb4 20:55 Drug: HYDROcodone-acetaminophen PO 5 mg-325 mg 1 tabs PO once Route: PO; jb4 20:55 Follow up: Response: Medication administered at discharge. jb4 20:55 Drug: Lidoderm Topical Patch 5 % (700 mg/patch) 1 patches Topical once; leave on for 12 jb4 hours; cover most painful area; may cut into smaller pieces Route: Topical; Site: affected area; 20:56 Follow up: Response: Medication administered at discharge. jb4 Disposition Summary: 02/07/25 20:28 Discharge Ordered Notes: Location: Home sb4 Problem: new sb4 Symptoms: have improved sb4 Condition: Stable sb4 Diagnosis - Sciatica, right side sb4 - Osteoarthritis of knee, unspecified sb4 Followup: sb4 - With: Private Physician - When: 1 week - Reason: Further diagnostic work-up, Recheck today's complaints, Re-evaluation by your physician Discharge Instructions: - Discharge Summary Sheet sb4 - Osteoarthritis sb4 - Sciatica sb4 Forms: - Patient Portal Instructions sb4 - Leadership Thank You Letter sb4 Prescriptions: - meloxicam 7.5 mg Oral tablet - take 1 tablet ORAL route daily; 14 tablet; Refills: 0, Product Selection sb4 Permitted - Prednisone 20 mg Oral Tablet - take 2 tablets ORAL route once daily for 5 days; 10 tablet; Refills: 0, Product sb4 Selection Permitted Signatures: Dispatcher [employer] Humera Martínez RN RN iw Bryson, James, RN RN jb4 Brown, Sophia, PA-C PA-C sb4
[2025-02-07] MEDS ORDERED: LIDOCAINE 4% PATCH ONE (20:42)
[2025-02-07] MEDS ORDERED: dexAMETHasone 10 MG/ML VIAL ONE (20:42)
[2025-02-08 03:45] VITALS: TEMP 98.4; O2SAT 98
[2025-02-08 03:46] VITALS: BP 132/64
== END 2025-02-07 20:56 | disposition home or self-care (01) ==
LOC: ER 17:45
DX: M54.31 Sciatica, right side (principal); M17.11 Unilateral primary osteoarthritis, right knee
CPT/HCPCS: 76377; 74176; 73562; 96372; 99284; Q0162; J2003; J1100

== ENCOUNTER 2025-07-06 12:54 | Emergency (ER) | payer OTHER ==
[2025-07-06 14:00] LABS: Absolute Lymphocytes (CBC) 0.6 K/uL (0.7-4.9); Hematocrit 42.6 % (36.0-45.0); Hemoglobin 14.3 g/dL (12.0-15.0); MCH 31.1 pg (27.0-35.0); MCHC 33.5 g/dL (32.0-36.0); MCV 93.0 fL (80-100); MPV 8.0 fL (7.6-11.3); Nucleated RBC Absolute Count 0.0 (0-0); Nucleated Red Blood Cells % 0.2 % (0-0); RBC Red Blood Cell Count 4.58 M/uL (3.86-4.86); White Blood Count 12.40 thou/uL (4.3-10.9)
[2025-07-06 14:20] LABS: Anion Gap 9.7 mEq/L (5.0-15.0); BUN Blood Urea Nitrogen 15.0 mg/dL (7-18); Glucose Level 162.0 mg/dL (74-106); Troponin High Sensitivity 3.1 pg/mL (<58.9)
[2025-07-06 14:21] LABS: Magnesium 2.1 mg/dL (1.6-2.4); Potassium 4.7 mEq/L (3.5-5.1)
--- NOTE | 2025-07-06 14:39 | RAD REPORT ---
EXAMINATION: ONE VIEW CHEST XR CLINICAL INDICATION: left shoulder pain TECHNIQUE: Frontal chest projection is submitted. Examination is limited by patient positioning and t echnique. COMPARISON: 06/05/2024 FINDINGS: The lungs are well inflated and clear. The heart is normal in size. No displaced fractures identified . Left total shoulder arthroplasty. IMPRESSION: No acute intrathoracic abnormalities.
--- NOTE | 2025-07-06 15:00 | RAD REPORT ---
EXAMINATION: XR LEFT SHOULDER CLINICAL INDICATION: Female, 70 years old. PAIN TECHNIQUE: Multiple views of the left shoulder were obtained. COMPARISON: No prior exam. FINDINGS: Left total shoulder arthroplasty. AC joint degenerative changes. No acute fracture or dislocation. IMPRESSION: No acute fracture or dislocation.
[2025-07-06 15:14] LABS: Blood Morphology Comment NOT SEEN (NOT SEEN); White Blood Cell Scan OK (OK)
--- NOTE | 2025-07-06 15:17 | RAD REPORT ---
EXAMINATION: XR RIGHT HIP CLINICAL INDICATION: . PAIN RIGHT TECHNIQUE: Multiple views of the right hip were obtained. COMPARISON: No prior exam. FINDINGS: Mild osteoarthritis right hip. No fracture, dislocation or AVN.
[2025-07-06] MEDS ORDERED: HYDROCODONE/APAP 5/325 MG TAB ONE (15:38)
--- NOTE | 2025-07-06 15:41 | ER ---
Nurse's Notes [facility] Name: Patria Mendoza Age: 70 yrs Sex: Female : 1955 Arrival Date: 07/06/2025 Time: 12:54 Bed 15 Private MD: Diagnosis: Pain in left shoulder;Pain in right hip;Essential (primary) hypertension Presentation: 07/06 13:20 Chief complaint: Patient states: L shoulder pain that radiates to back with nausea that me1 started about 09:30 today. c/o R hip and leg pain x 2 weeks. Reports intermittent vaginal bleeding for the past two weeks. Coronavirus screen: Vaccine status: Patient reports being unvaccinated. Ebola Screen: No symptoms or risks identified at this time. Initial Sepsis Screen: Does the patient meet any 2 criteria? No. Patient's initial sepsis screen is negative. Does the patient have a suspected source of infection? No. Patient's initial sepsis screen is negative. Risk Assessment: Do you want to hurt yourself or someone else? Patient reports no desire to harm self or others. Onset of symptoms is unknown. 13:20 Method Of Arrival: Wheelchair me1 13:20 Acuity: KADY 3 me1 Triage Assessment: 13:23 General: Appears uncomfortable, obese, well groomed, well developed, Behavior is calm, me1 cooperative, appropriate for age. General: Reports L shoulder pain that radiates to back w/nausea that started this morning, R hip and leg pain x 2 weeks and intermittent vaginal bleeding for the past two weeks. Pain: Complains of pain in chest and right hip Pain radiates to left scapular area Pain currently is 8 out of 10 on a pain scale. Quality of pain is described as aching, Pain began 4 hours ago. Is continuous. EENT: No signs and/or symptoms were reported regarding the EENT system. Neuro: Level of Consciousness is awake, alert, obeys commands, Oriented to person, place, time, situation, Appropriate for age. Cardiovascular: Patient's skin is warm and dry. Respiratory: Airway is patent Respiratory effort is even, unlabored, Respiratory pattern is regular, symmetrical. GI: Reports nausea. : No signs and/or symptoms were reported regarding the genitourinary system. Derm: Skin is intact, is healthy with good turgor, Skin is pink, warm \T\ dry. Musculoskeletal: Reports pain in anterior aspect of left shoulder and right hip. Historical: - Allergies: 13:23 Codeine; me1 13:23 Iodinated Contrast Media - IV Dye; me1 13:23 Morphine (Upset stomach); me1 13:23 Sulfa (Sulfonamide Antibiotics); me1 13:23 Ultram; me1 - PMHx: 13:23 Anxiety; Asthma; diabetes mellitus; Hypertension; Hypothyroidism; Irregular heart rate; me1 - PSHx: 13:23 Ankle; hip; Shoulder; Cholecystectomy; me1 - Immunization history:: Adult Immunizations up to date. - Infectious Disease History:: Denies. - Social history:: Smoking status: Patient denies any tobacco usage or history of. Screenin:26 [facility] ED Fall Risk Assessment (Adult) History of falling in the last 3 months, me1 including since admission No falls in past 3 months (0 pts) Confusion or Disorientation No (0 pts) Intoxicated or Sedated No (0 pts) Impaired Gait Yes (1 pt) Mobility Assist Device Used Yes (1 pt) Altered Elimination No (0 pt) Score/Fall Risk Level 0 - 2 = Low Risk Maintained a safe environment, Provided non-skid footwear, Hourly rounding (assess needs \T\ fall precautionary measures) done. Abuse screen: Denies threats or abuse. Nutritional screening: No deficits noted. Tuberculosis screening: No symptoms or risk factors identified. Assessment: 13:26 General: See triage assessment. me1 Vital Signs: 13:20 BP 149 / 69; Pulse 91; Resp 18; Temp 98.6; Pulse Ox 100% ; Weight 92.53 kg; Height 5 me1 ft. 2 in. ; Pain 8/10; 13:30 BP 144 / 71; Pulse 93; Resp 17; Pulse Ox 98% ; me1 14:30 BP 132 / 57; Pulse 93; Resp 16; Pulse Ox 98% ; me1 15:41 BP 134 / 61; Pulse 91; Resp 17; Temp 98.2; Pulse Ox 96% ; me1 13:20 Body Mass Index 37.31 (92.53 kg, 157.48 cm) me1 13:20 Pain Scale: Adult nj1 ED Course: 12:57 Patient arrived in ED. mr 13:03 Zacarias Holman DO is Attending Physician. ms3 13:10 Adelina Virk, RN is Primary Nurse. me1 13:23 Triage completed. me1 13:23 Arm band placed on Patient placed in an exam room. me1 13:26 Patient has correct armband on for positive identification. Bed in low position. Call me1 light in reach. Side rails up X 1. Provided Education on: POC. Verbalized understanding.. Client placed on continuous cardiac and pulse oximetry monitoring. NIBP monitoring applied. library monitor on. Pulse ox on. NIBP on. 13:26 No provider procedures requiring assistance completed. me1 13:56 Missed attempt(s): 22 gauge in right forearm. me1 13:56 Missed attempt(s): 22 gauge in right antecubital area. me1 13:56 Basic Metabolic Panel Sent. me1 13:56 CBC with Diff Sent. me1 13:56 Magnesium Sent. me1 13:56 Troponin HS Sent. me1 14:11 XRAY Chest (1 view) In Process Unspecified. EDMS 14:11 Shoulder Left (2 View) XRAY In Process Unspecified. EDMS 14:11 Hip Right 2 View XRAY In Process Unspecified. EDMS 15:42 Patient did not have IV access during this emergency room visit. me1 Administered Medications: 15:48 Drug: HYDROcodone-acetaminophen PO 5 mg-325 mg 1 tabs PO once Route: PO; me1 16:00 Follow up: Response: No adverse reaction; Pain is decreased me1 Medication: 13:26 VIS not applicable for this client. me1 Outcome: 15:40 Discharge ordered by MD. ms3 16:00 Discharged to home via wheelchair, me1 16:00 Condition: stable 16:00 Discharge instructions given to patient, Instructed on discharge instructions, follow up and referral plans. Demonstrated understanding of instructions, follow-up care, 16:00 Patient left the ED. me1 Signatures: Dispatcher [employer] Vanessa Curtis, Reg Reg Zacarias Henry, DO DO ms3 Adelina Virk, RN RN me1
--- NOTE | 2025-07-06 15:41 | EDPHYS ---
Physician Documentation [facility] Name: Patria Mendoza Age: 70 yrs Sex: Female : 1955 Arrival Date: 07/06/2025 Time: 12:54 Bed 15 Private MD: ED Physician Zacarias Holman HPI: 07/06 13:52 This 70 yrs old Female presents to ER via Wheelchair with complaints of Shoulder Pain, ms3 Leg Pain, Hip Pain. 13:52 70-year-old female with past medical history of anxiety, asthma, diabetes, ms3 hypertension, hypothyroidism, irregular heart rate presents to the emergency department for left shoulder pain that began at 9:30 AM today. Patient states she has also had right hip pain for 2 weeks. Patient rates her discomfort an 8/10. Patient endorses nausea. Patient denies vomiting or shortness of breath.. Historical: - Allergies: 13:23 Codeine; me1 13:23 Iodinated Contrast Media - IV Dye; me1 13:23 Morphine (Upset stomach); me1 13:23 Sulfa (Sulfonamide Antibiotics); me1 13:23 Ultram; me1 - PMHx: 13:23 Anxiety; Asthma; diabetes mellitus; Hypertension; Hypothyroidism; Irregular heart rate; me1 - PSHx: 13:23 Ankle; hip; Shoulder; Cholecystectomy; me1 - Immunization history:: Adult Immunizations up to date. - Infectious Disease History:: Denies. - Social history:: Smoking status: Patient denies any tobacco usage or history of. ROS: 13:52 Constitutional: Negative for fever, and chills. Cardiovascular: Negative for chest ms3 pain, and palpitations. Respiratory: Negative for shortness of breath, cough, wheezing, and pleuritic chest pain, Abdomen/GI: Negative for abdominal pain, nausea, vomiting, diarrhea, and constipation, 13:52 MS/Extremity: Negative for injury and deformity, Skin: Negative for injury, rash, and discoloration, 13:52 MS/extremity: Positive for pain, of the Left shoulder and right hip, Exam: 13:52 Constitutional: This is a well developed, well nourished patient who is awake, alert, ms3 and in no acute distress. Cardiovascular: Regular rate and rhythm with a normal S1 and S2. No gallops, murmurs, or rubs. Normal PMI, no JVD. No pulse deficits. Respiratory: Lungs have equal breath sounds bilaterally, clear to auscultation and percussion. No rales, rhonchi or wheezes noted. No increased work of breathing, no retractions or nasal flaring. Abdomen/GI: Soft, non-tender, with normal bowel sounds. No distension or tympany. No guarding or rebound. No evidence of tenderness throughout. Skin: Warm, dry with normal turgor. Normal color with no rashes, no lesions, and no evidence of cellulitis. MS/ Extremity: Pulses equal, no cyanosis. Neurovascular intact. Full, normal range of motion. 14:39 ECG was reviewed by the Attending Physician. ms3 Vital Signs: 13:20 BP 149 / 69; Pulse 91; Resp 18; Temp 98.6; Pulse Ox 100% ; Weight 92.53 kg; Height 5 me1 ft. 2 in. ; Pain 8/10; 13:30 BP 144 / 71; Pulse 93; Resp 17; Pulse Ox 98% ; me1 14:30 BP 132 / 57; Pulse 93; Resp 16; Pulse Ox 98% ; me1 15:41 BP 134 / 61; Pulse 91; Resp 17; Temp 98.2; Pulse Ox 96% ; me1 13:20 Body Mass Index 37.31 (92.53 kg, 157.48 cm) me1 13:20 Pain Scale: Adult me1 MDM: 13:08 Medical Screening Exam initiated ms3 13:52 Differential diagnosis: glenoid fracture, DJD, tendonitis, Myocardial infarction versus ms3 acute coronary syndrome. 19:36 Data reviewed: vital signs, nurses notes, radiologic studies, and as a result, I will ms3 discharge patient. I considered the following discharge prescriptions or medication management in the emergency department Medications were administered in the Emergency Department. See MAR. Independent interpretation of the following test(s) in the Emergency Department EKG: See my EKG interpretation above X-Ray: My interpretation is right hip x-ray images reviewed by me do not reveal fracture. Counseling: I had a detailed discussion with the patient and/or guardian regarding the historical points, exam findings, and any diagnostic results supporting the discharge/admit diagnosis, lab results, radiology results, the need for outpatient follow up, to return to the emergency department if symptoms worsen or persist or if there are any questions or concerns that arise at home. Special discussion: I discussed with the patient/guardian in detail that at this point there is no indication for admission to the hospital. It is understood, however, that if the symptoms persist or worsen the patient needs to return immediately for re-evaluation. ED course: Discussed imaging and labs with patient. Patient to follow-up with her primary care physician in 2 to 3 days. Patient understood and agreed with plan. All questions were answered. Return precautions were discussed to include fevers, weakness, worsening symptoms, or any other concerns.. 07/06 13:31 Order name: Basic Metabolic Panel; Complete Time: 14:31 ms3 07/06 13:31 Order name: CBC with Diff; Complete Time: 15:32 ms3 07/06 13:31 Order name: Magnesium; Complete Time: 14:31 ms3 07/06 13:31 Order name: Troponin HS; Complete Time: 14:31 ms3 07/06 14:07 Order name: CBC Smear Scan; Complete Time: 15:32 EDMS 07/06 13:31 Order name: XRAY Chest (1 view); Complete Time: 15:32 ms3 07/06 13:31 Order name: Shoulder Left (2 View) XRAY; Complete Time: 15:32 ms3 07/06 13:31 Order name: Hip Right 2 View XRAY; Complete Time: 15:32 ms3 07/06 13:31 Order name: Cardiac monitoring; Complete Time: 15:41 ms3 07/06 13:31 Order name: EKG - Nurse/Tech; Complete Time: 15:41 ms3 07/06 13:31 Order name: Labs collected and sent; Complete Time: 13:56 ms3 07/06 13:31 Order name: O2 Per Protocol; Complete Time: 13:56 ms3 07/06 13:31 Order name: O2 Sat Monitoring; Complete Time: 13:56 ms3 EC:39 Rate is 95 beats/min. Rhythm is regular. Left axis deviation noted. CO interval is ms3 prolonged. QRS interval is normal. Clinical impression: NSR w/ Non-specific ST/T Changes and 1st degree heart block. Interpreted by me. Reviewed by me. Administered Medications: 15:48 Drug: HYDROcodone-acetaminophen PO 5 mg-325 mg 1 tabs PO once Route: PO; me1 16:00 Follow up: Response: No adverse reaction; Pain is decreased me1 Disposition Summary: 07/06/25 15:40 Discharge Ordered Notes: Location: Home ms3 Condition: Stable ms3 Diagnosis - Pain in left shoulder ms3 - Pain in right hip ms3 - Essential (primary) hypertension ms3 Followup: ms3 - With: Private Physician - When: 2 - 3 days - Reason: Recheck today's complaints Discharge Instructions: - Discharge Summary Sheet ms3 - Hypertension, Adult ms3 - Musculoskeletal Pain ms3 - Shoulder Pain, [id number] ms3 Forms: - Medication Reconciliation Form ms3 - Antibiotic Education ms3 - Prescription Opioid Use ms3 - Patient Portal Instructions ms3 - Leadership Thank You Letter ms3 Signatures: Dispatcher [employer] EDMS Zacarias Holman, DO ms3 Adelina Virk RN RN me1 Corrections: (The following items were deleted from the chart) 13:32 13:32 Shoulder Left 2 View+RAD.[email or web address].[email or web address] ordered. EDMS EDMS 13:32 13:32 Hip Right 2 View+[email or web address].[email or web address] ordered. EDMS EDMS 15:41 13:31 IV Saline Lock ordered. ms3 me1
[2025-07-06 18:11] VITALS: BP 134/61; TEMP 98.2; O2SAT 96
== END 2025-07-06 16:00 | disposition home or self-care (01) ==
LOC: ER 12:54
DX: M25.512 Pain in left shoulder (principal); M25.551 Pain in right hip; I10 Essential (primary) hypertension
CPT/HCPCS: 36415; 71045; 80048; 83735; 84484; 85025; 93005; 99284

== ENCOUNTER 2025-07-07 03:25 | Emergency (ER) | payer OTHER ==
--- NOTE | 2025-07-07 06:09 | RAD REPORT ---
EXAM DESCRIPTION: Knee Right 3 View RadLex: XR KNEE 3 VIEWS RIGHT CLINICAL HISTORY: 70 years Female, PAIN COMPARISON: None. FINDINGS: 3 views of the right knee. No acute fracture or dislocation. Moderate to marked degenerative changes, most severe in the patellofemoral compartment joint space narrowing and bony spurring. Small joint effusion. Soft tissues are unremarkable. IMPRESSION: Moderate to marked degenerative changes, most severe in the patellofemoral compartment. Small joint e ffusion. Electronically signed by: Jocelin Dawson MD 07/07/2025 05:08 AM CDT RP Due to temporary technical issues with the PACS/[employer] reporting system, reports are being robb d by the in-house radiologist without review as a courtesy to ensure prompt reporting the interpreting radiologist is fully responsible for the content of the report. Transcribed Date/Time: 07/07/2025 6:08 AM
--- NOTE | 2025-07-07 06:23 | ER ---
Nurse's Notes [facility] Name: Patria Mendoza Age: 70 yrs Sex: Female : 1955 Arrival Date: 07/07/2025 Time: 03:25 Bed 13 Private MD: Diagnosis: Contusion of right knee Presentation: 07/07 03:26 Chief complaint: EMS states: pt went home post discharge today from hospital and had ss12 fall around 1700. pt complaining of pain the right knee. Care prior to arrival: None. Mechanism of Injury: Fall from standing position. Trauma event details: Injury occurred in the [facility]. 03:26 Method Of Arrival: EMS: [facility] 12 03:43 Acuity: KADY 3 ss12 03:44 Coronavirus screen: Client denies travel out of the [place] in the last 14 days. Ebola ss12 Screen: Patient negative for fever greater than or equal to 101.5 degrees Fahrenheit, and additional compatible Ebola Virus Disease symptoms Patient denies exposure to infectious person. Patient denies travel to an Ebola-affected area in the 21 days before illness onset. Initial Sepsis Screen: Does the patient meet any 2 criteria? No. Patient's initial sepsis screen is negative. Does the patient have a suspected source of infection? No. Patient's initial sepsis screen is negative. Risk Assessment: Do you want to hurt yourself or someone else? Patient reports no desire to harm self or others. 03:45 Onset of symptoms was July 06, 2025 at 17:00. 12 Triage Assessment: 03:31 General: Appears in no apparent distress. comfortable, Behavior is calm, cooperative, ss12 quiet. Pain: Complains of pain in right knee Pain does not radiate. Pain currently is 4 out of 10 on a pain scale. at worst was 10 out of 10 on a pain scale. Quality of pain is described as aching, Pain began suddenly, Is continuous, Alleviated by rest. EENT: No deficits noted. No signs and/or symptoms were reported regarding the EENT system. Neuro: No deficits noted. Trammell Agitation-Sedation Scale (RASS): Level of Consciousness is awake, alert, obeys commands, Oriented to person, place, time, situation. Cardiovascular: No deficits noted. Denies nausea, vomiting, Patient's skin is warm and dry. Respiratory: No deficits noted. Airway is patent Respiratory effort is even, unlabored, Respiratory pattern is regular, symmetrical. GI: No deficits noted. No signs and/or symptoms were reported involving the gastrointestinal system. : No deficits noted. No signs and/or symptoms were reported regarding the genitourinary system. Derm: No deficits noted. No signs and/or symptoms reported regarding the dermatologic system. Skin is intact, Skin is dry, Skin is pink, warm \T\ dry. normal. Musculoskeletal: Circulation, motion, and sensation intact. Reports right knee pain and swelling Denies. Trauma Activation: Physician: ED Physician; Name: ; Notified At: ; Arrived At: Physician: General Surgeon; Name: ; Notified At: ; Arrived At: Physician: Radiology; Name: ; Notified At: ; Arrived At: Physician: Respiratory; Name: ; Notified At: ; Arrived At: Physician: Lab; Name: ; Notified At: ; Arrived At: 03:26 pt stable no active bleeding noted. no need to activate trauma at this time 12 Historical: - Allergies: 03:41 Codeine; ss12 03:41 Iodinated Contrast Media - IV Dye; ss12 03:41 Morphine (Upset stomach); ss12 03:41 Sulfa (Sulfonamide Antibiotics); ss12 03:41 Ultram; 12 - Home Meds: 03:41 Bystolic Oral [Active]; Cymbalta Oral [Active]; duloxetine 30 mg Oral capsule daily ss12 [Active]; ezetimibe 10 mg Oral tablet daily [Active]; famotidine 40 mg Oral tablet 2 times per day [Active]; Fiasp FlexTouch U-100 Insulin 100 unit/mL (3 mL) subcutaneous Insulin Pen 7 units before meals [Active]; losartan Oral [Active]; nebivolol 2.5 mg Oral tablet 2 tabs daily [Active]; tizanidine 4 mg Oral capsule 3 times per day [Active]; Zantac Oral [Active]; - PMHx: 03:41 Anxiety; Asthma; diabetes mellitus; Hypertension; Hypothyroidism; Irregular heart rate; ss12 - PSHx: 03:41 Ankle; Cholecystectomy; Shoulder; hip; ss12 - Immunization history: Last tetanus immunization: unknown. - Infectious Disease History:: Denies. - Family history:: not pertinent. - Social history:: Smoking status: Patient denies any tobacco usage or history of. - Hospitalizations: : No recent hospitalization is reported. Screenin:43 [facility] ED Fall Risk Assessment (Adult) History of falling in the last 3 months, ss12 including since admission Yes- single mechanical fall (1 pt) Confusion or Disorientation No (0 pts) Intoxicated or Sedated Impaired Gait No (0 pts) Mobility Assist Device Used No (0 pt) Altered Elimination No (0 pt) Score/Fall Risk Level 0 - 2 = Low Risk Oriented to surroundings, Maintained a safe environment, Educated pt \T\ family on fall prevention, incl call for assistance when getting out of bed, Assessed \T\ reinforced patient's understanding of fall precautions, Provided non-skid footwear. Abuse screen: Denies threats or abuse. Denies injuries from another. Nutritional screening: No deficits noted. Tuberculosis screening: No symptoms or risk factors identified. Primary Survey: 03:36 NO uncontrolled hemorrhage observed. Breathing/Chest: Spontaneous respiratory effort, ss12 equal unlabored respirations, breath sounds clear bilaterally, regular pattern, symmetrical chest rise and fall. Circulation: No external hemorrhage present. Regular and strong central pulse, skin warm/dry/normal color. Disability Pupils are equal, round, reactive to light and accommodation. Client is alert. Exposure/Environment: A warming method has been applied: A warm blanket has been provided to the patient. 03:44 Reassessment Breathing: Spontaneous respiratory effort, equal unlabored respirations, ss12 breath sounds clear bilaterally, regular pattern with symmetrical chest rise and fall. Circulation: No external hemorrhage noted. Regular and strong central pulse, skin warm/dry/normal color. Disability: Pupils Pupils are equal, round, reactive to light and accomodation. Alert. Assessment: 03:32 General: Appears in no apparent distress. comfortable, Behavior is calm, cooperative, ss12 quiet. Pain: Complains of pain in right knee Pain does not radiate. Pain currently is 4 out of 10 on a pain scale. at worst was 10 out of 10 on a pain scale. Quality of pain is described as aching, Pain began suddenly, post fall Is continuous. Pain: Alleviated by rest. Neuro: No deficits noted. Level of Consciousness is awake, alert, obeys commands, Oriented to person, place, time, situation. EENT: No deficits noted. No signs and/or symptoms were reported regarding the EENT system. Cardiovascular: No deficits noted. Reports. Respiratory: No deficits noted. Airway is patent Respiratory effort is even, unlabored, Respiratory pattern is regular, symmetrical. GI: No deficits noted. No signs and/or symptoms were reported involving the gastrointestinal system. : No deficits noted. No signs and/or symptoms were reported regarding the genitourinary system. Derm: No deficits noted. No signs and/or symptoms reported regarding the dermatologic system. Skin is intact, Skin is pink, warm \T\ dry. normal. Musculoskeletal: No deficits noted. Circulation, motion, and sensation intact. Swelling mild swelling noted in right knee. 04:30 Reassessment: Patient appears in no apparent distress at this time. Patient and/or ss12 family updated on plan of care and expected duration. Pain level reassessed. Patient is alert, oriented x 3, equal unlabored respirations, skin warm/dry/pink. 05:30 Reassessment: Patient appears in no apparent distress at this time. Patient and/or ss12 family updated on plan of care and expected duration. Pain level reassessed. Patient is alert, oriented x 3, equal unlabored respirations, skin warm/dry/pink. 06:28 Reassessment: Patient appears in no apparent distress at this time. Patient and/or ss12 family updated on plan of care and expected duration. Pain level reassessed. Patient is alert, oriented x 3, equal unlabored respirations, skin warm/dry/pink. Vital Signs: 03:26 BP 112 / 64; Pulse 79; Resp 18 S; Temp 98.6(O); Pulse Ox 96% on R/A; ss12 04:30 BP 128 / 52; Pulse 71; Resp 18 S; Pulse Ox 96% on R/A; ss12 05:30 BP 121 / 65; Pulse 72; Resp 18 S; Pulse Ox 97% on R/A; ss12 06:28 BP 123 / 56; Pulse 73; Resp 18; Pulse Ox 97% on R/A; ss12 Teresa Coma Score: 03:26 Eye Response: spontaneous(4). Motor Response: obeys commands(6). Verbal Response: ss12 oriented(5). Total: 15. Trauma Score (Adult): 03:26 Eye Response: spontaneous(1); Verbal Response: oriented(1); Motor Response: obeys ss12 commands(2); Systolic BP: > 89 mm Hg(4); Respiratory Rate: 10 to 29 per min(4); Teresa Score: 15; Trauma Score: 12 ED Course: 03:25 Patient arrived in ED. [email or web address] 03:26 Chacho Serra MD is Attending Physician. rn 03:30 Felicia Duarte, RN is Primary Nurse. ss12 03:44 Triage completed. ss12 03:44 Arm band placed on right wrist. ss12 03:44 No provider procedures requiring assistance completed. ss12 03:44 Thermoregulation: warm blanket given to patient. ss12 03:45 Patient has correct armband on for positive identification. Provided Education on: plan ss12 of care. 03:45 Patient maintains SpO2 saturation greater than 95% on room air. ss12 04:19 XRAY Knee RIGHT 3 view In Process Unspecified. EDMS 06:32 Patient did not have IV access during this emergency room visit. ss12 Administered Medications: No medications were administered Medication: 03:44 VIS not applicable for this client. ss12 Intake: 06:00 PO: 30ml (Water); Total: 30ml. ss12 Outcome: 03:46 Patient's length of stay was not longer than 2 hours. ss12 06:22 Discharge ordered by . rn 06:32 Discharged to home ambulatory, ss12 06:32 Condition: stable 06:32 Discharge instructions given to patient, Instructed on discharge instructions, follow up and referral plans. Demonstrated understanding of instructions, follow-up care, 07:00 Patient left the ED. ss12 Signatures: Dispatcher [employer] [facility] Chacho Serra MD MD rn Jeffries, Jennifer [id number] Felicia Duarte RN RN [facility]
--- NOTE | 2025-07-07 06:23 | EDPHYS ---
Physician Documentation [facility] Name: Patria Mendoza Age: 70 yrs Sex: Female : 1955 Arrival Date: 07/07/2025 Time: 03:25 Bed 13 Private MD: ED Physician Chacho Serra HPI: 07/07 03:40 This 70 yrs old Female presents to ER via EMS with complaints of Fall Injury. rn 03:40 Patient reports fall injury, approximately 11 hours ago. Reports right knee bent and rn hurt her right knee. Did not have direct trauma to the knee. Was able to ambulate after injury but difficulty sleeping so called 911. Denies any other injury. No other focal pain. Historical: - Allergies: 03:41 Codeine; ss12 03:41 Iodinated Contrast Media - IV Dye; ss12 03:41 Morphine (Upset stomach); ss12 03:41 Sulfa (Sulfonamide Antibiotics); ss12 03:41 Ultram; ss12 - Home Meds: 03:41 Bystolic Oral [Active]; Cymbalta Oral [Active]; duloxetine 30 mg Oral capsule daily ss12 [Active]; ezetimibe 10 mg Oral tablet daily [Active]; famotidine 40 mg Oral tablet 2 times per day [Active]; Fiasp FlexTouch U-100 Insulin 100 unit/mL (3 mL) subcutaneous Insulin Pen 7 units before meals [Active]; losartan Oral [Active]; nebivolol 2.5 mg Oral tablet 2 tabs daily [Active]; tizanidine 4 mg Oral capsule 3 times per day [Active]; Zantac Oral [Active]; - PMHx: 03:41 Anxiety; Asthma; diabetes mellitus; Hypertension; Hypothyroidism; Irregular heart rate; ss12 - PSHx: 03:41 Ankle; Cholecystectomy; Shoulder; hip; ss12 - Immunization history: Last tetanus immunization: unknown. - Infectious Disease History:: Denies. - Family history:: not pertinent. - Social history:: Smoking status: Patient denies any tobacco usage or history of. - Hospitalizations: : No recent hospitalization is reported. ROS: 03:40 Constitutional: Negative for fever, chills, and weight loss, Neck: Negative for injury, rn pain, and swelling, Cardiovascular: Negative for chest pain, palpitations, and edema, Respiratory: Negative for shortness of breath, cough, wheezing, and pleuritic chest pain, Abdomen/GI: Negative for abdominal pain, nausea, vomiting, diarrhea, and constipation, Back: Negative for injury and pain, MS/Extremity: Positive for right knee pain Neuro: Negative for headache/weakness/numbness Exam: 03:40 Constitutional: This is a well developed, well nourished patient who is awake, alert, rn and in no acute distress. Head/Face: Normocephalic, atraumatic. MS/ Extremity: Mild tenderness right knee, no ecchymosis or discoloration. No open wounds or laceration. No significant effusion noted. Right knee held in passive flexion Vital Signs: 03:26 BP 112 / 64; Pulse 79; Resp 18 S; Temp 98.6(O); Pulse Ox 96% on R/A; ss12 04:30 BP 128 / 52; Pulse 71; Resp 18 S; Pulse Ox 96% on R/A; ss12 05:30 BP 121 / 65; Pulse 72; Resp 18 S; Pulse Ox 97% on R/A; ss12 06:28 BP 123 / 56; Pulse 73; Resp 18; Pulse Ox 97% on R/A; ss12 Dover Coma Score: 03:26 Eye Response: spontaneous(4). Motor Response: obeys commands(6). Verbal Response: ss12 oriented(5). Total: 15. Trauma Score (Adult): 03:26 Eye Response: spontaneous(1); Verbal Response: oriented(1); Motor Response: obeys ss12 commands(2); Systolic BP: > 89 mm Hg(4); Respiratory Rate: 10 to 29 per min(4); Teresa Score: 15; Trauma Score: 12 MDM: 03:26 Medical Screening Exam initiated rn 06:21 Differential diagnosis: contusion, fracture, sprain, strain. Data reviewed: vital rn signs, nurses notes, radiologic studies, plain films, and as a result, I will discharge patient. Independent interpretation of the following test(s) in the Emergency Department X-Ray: My interpretation is X-ray images right knee negative for acute fracture per my interpretation. Counseling: I had a detailed discussion with the patient and/or guardian regarding the historical points, exam findings, and any diagnostic results supporting the discharge/admit diagnosis, radiology results, the need for outpatient follow up, to return to the emergency department if symptoms worsen or persist or if there are any questions or concerns that arise at home. Special discussion: I discussed with the patient/guardian in detail that at this point there is no indication for admission to the hospital. It is understood, however, that if the symptoms persist or worsen the patient needs to return immediately for re-evaluation. 07/07 03:38 Order name: XRAY Knee RIGHT 3 view rn 07/07 06:22 Order name: Misc. Order: knee brace to right knee; Complete Time: 06:33 rn Administered Medications: No medications were administered Disposition Summary: 07/07/25 06:22 Discharge Ordered Notes: Location: Home rn Problem: new rn Symptoms: are unchanged rn Condition: Stable rn Diagnosis - Contusion of right knee rn Followup: rn - With: Private Physician - When: As needed - Reason: Recheck today's complaints, Re-evaluation by your physician Discharge Instructions: - Discharge Summary Sheet rn - Contusion rn Forms: - Medication Reconciliation Form rn - Antibiotic western felt hat blocker - Prescription Opioid Use rn - Patient Portal Instructions rn - Leadership Thank You Letter rn Signatures: Dispatcher [employer] Chacho Mensah MD MD rn Shamaila, Shamaila, RN RN ss12
[2025-07-07 10:02] VITALS: TEMP 98.6
[2025-07-07 10:03] VITALS: O2SAT 97
[2025-07-07 10:05] VITALS: BP 123/56
== END 2025-07-07 07:00 | disposition home or self-care (01) ==
LOC: ER 03:25
DX: S80.01XA Contusion of right knee, initial encounter (principal); W18.30XA Fall on same level, unspecified, initial encounter
CPT/HCPCS: 99283